=== PATIENT | female | born 1980 | race Caucasian/White ===

== ENCOUNTER → 2020-01-31 | Day surgery (SDC) | payer OTHER ==
[~2020-01-31] MED LIST: BACTRIM DS TAB1 EACH PO; KEFLEX500 MG PO; NOHOMEMEDICATIONS; NORCO 5-325 TA1 EACH PO; ZPAK PO
[2020-01-31 06:53] LABS: HEMATOCRIT 40.1 % (37.0-47.0); HEMOGLOBIN 13.9 gm/dL (12.0-15.0)
--- NOTE | 2020-02-03 15:10 | PATH ---
[address] [address] PATHOLOGY RPT PROCEDURE Name: ZOHREH WU Room: [facility]#: [id number] Admission: 01/31/20 Date of : 78 Discharge: Report #: [id number] Path Case #: [id number] [facility] Accession Number: [id number] . 01 Material submitted: . neck - MASS RIGHT NECK. Modifiers: right . 01 Clinical history: . Benign neoplasm right neck . 02 Diagnosis: Mass right neck: - Benign skin with ruptured epidermal inclusion cyst showing acute, chronic, and foreign body type granulomatous inflammation, fibrosis and focal calcification. (KEVIN:pit 02/03/2020) QTP 02/03/2020 1228 Local . 02 Electronically signed: . Jerry Augustin MD, Pathologist NPI- [id number] . 01 Gross description: . The specimen is received in formalin, labeled "Zohreh Wu mass R neck". Received is an ellipse of pale moss skin with attached underlying fibroadipose tissue measuring 1.5 x 1.0 x 1.5 cm in greatest dimensions. The surgical margin is inked. Sectioning reveals pale moss to yellow-moss cut surfaces throughout. The specimen is bisected and entirely submitted in cassette A1. (CAA; 01/31/2020) QA/QAC 02/03/2020 1227 Local . 02 Pathologist provided ICD-10: L72.0, L90.5, L98.9 . 02 CPT . 198019 Specimen Comment: A courtesy copy of this report has been sent to [phone] Specimen Comment: [phone] Specimen Comment: Report sent to / DR BERGMAN Performed at: [address] [id number] MD Jonny Yancey MD Phone: [phone] Performed at: 02 [facility] [address] [place], [place] [id number] [place] [address] PATHOLOGY RPT PROCEDURE Name: ARTIZOHREH Room: [facility].#: [id number] Admission: 01/31/20 Date of : 78 Discharge: Report #: [id number] Path Case #: [id number] MD Jerry Augustin MD Phone: [phone]
--- NOTE | 2020-02-06 13:14 | OP ---
[facility] [address] [place] [address] OPERATIVE REPORT Name: LUIS CARLOS CHI Room: [facility]#: [id number] Admission: 01/31/20 Attend Phys: Hunter Mcintosh Discharge: Date of : 78 Report #: [id number] THIS REPORT FOR: //name// cc: Angel Arnold Adam J DO ~ THIS REPORT FOR: //name// CC: Angel Mcintosh DATE OF SERVICE: 01/31/2020 PREOPERATIVE DIAGNOSIS: Benign right neck mass, 2 cm. POSTOPERATIVE DIAGNOSIS: Benign right neck mass, 2 cm. OPERATION: Excision of benign right neck mass, 2 cm. SURGEON: Hunter Mcintosh MD ANESTHESIA: General. ESTIMATED BLOOD LOSS: Minimal. SPECIMEN: Right neck mass. DESCRIPTION OF PROCEDURE: After informed consent was obtained, the patient was brought to the operating room and placed supine. SCDs were placed and working, preoperative antibiotics were administered, general anesthesia was induced. The right neck was prepped and draped in the usual sterile fashion. A 2 cm elliptical incision was made over the right neck mass. Cautery dissection was made down through the subcutaneous tissue down to healthy fat. The mass was dissected out on all sides to get a good margin. It was sent off as a specimen. The skin was then closed with running 4-0 Monocryl in running subcuticular fashion. Incision was dressed with Steri-Strips, and gauze. Sterile dressings were applied. COMPLICATIONS: None. DISPOSITION: The patient was taken to recovery in satisfactory condition. <ELECTRONICALLY SIGNED> By: Hunter Mcintosh MD 02/06/20 1314 0828 [id number] Mcintosh MD /nt
== END | disposition home or self-care (01) ==
LOC: M.SUR 06:01
PROVIDERS: ATTEND Surgery
DX: R22.1 Localized swelling, mass and lump, neck (principal); D36.7 Benign neoplasm of other specified sites; Z11.59 Encounter for screening for other viral diseases; L72.0 Epidermal cyst; L98.9 Disorder of the skin and subcutaneous tissue, unspecified; L90.5 Scar conditions and fibrosis of skin

== ENCOUNTER → 2021-04-02 | Outpatient (CLI) | payer OTHER | LOC: M.RAD 09:00 | PROVIDERS: ATTEND Family Medicine | DX: Z12.31 Encounter for screening mammogram for malignant neoplasm of breast (principal) ==